=== PATIENT | female | born 1960 | race Caucasian/White ===

== ENCOUNTER 2019-05-16 17:39 | Emergency (ER) | payer BC ==
[2019-05-16] MEDS ORDERED: Acetaminophen/HYDROcodone 325-5 MG Tab PO ONE (18:19)
--- NOTE | 2019-05-16 18:22 | EDM.PDOC ---
ED HPI GENERAL MEDICAL PROBLEM - General Chief Complaint: Lower Extremity Injury/Pain Stated Complaint: FALL/R ANKLE INJURY Time Seen by Provider: 05/16/19 17:51 Source of Information: Reports: Patient History Limitations: Reports: No Limitations - History of Present Illness INITIAL COMMENTS - FREE TEXT/NARRATIVE: The patient presents with right ankle pain. She was walking outside to move a semi and she slipped on the ice. She did not hit her head or hurt her neck. She has pain and swelling to her right ankle. She could not walk on it. She has no other pain. Onset: Sudden Duration: Minutes: Location: Reports: Lower Extremity, Right (ankle) Quality: Reports: Sharp Severity: Moderate Improves with: Reports: Immobilization Worsens with: Reports: Movement Context: Reports: Trauma (Slipped on the ice and fell) Associated Symptoms: Reports: No Other Symptoms Right Ankle Pain Score (Numeric/FACES): 5 - Related Data Allergies Allergy/AdvReac Type Severity Reaction Status Date / Time Sulfa (Sulfonamide Allergy Rash Verified 05/16/19 17:50 Antibiotics) Home Meds: Home Meds Aspirin [Halfprin] 81 mg PO DAILY 05/16/19 [History] Fish Oil/[place]-3 Fatty Acids [Fish Oil 1,000 MG] 2,000 gm PO DAILY 05/16/19 [ History] Hydrocodone/Acetaminophen [Hydrocodon-Acetaminophen 5-325] 1 - 2 each PO Q6HR PRN #20 tablet 05/16/19 [Rx] Levothyroxine [Synthroid] 05/16/19 [History] Omeprazole 05/16/19 [History] Rosuvastatin [Crestor] 05/16/19 [History] Venlafaxine [Effexor XR] 05/16/19 [History] Past Medical History HEENT History: Reports: Impaired Vision Cardiovascular History: Reports: High Cholesterol, Hypertension [employer] History: Reports: Psychiatric History: Reports: Depression Endocrine/Metabolic History: Reports: Hypothyroidism - Infectious Disease History Infectious Disease History: Reports: Chicken Pox - Past Surgical History GI Surgical History: Reports: Cholecystectomy Female Surgical History: Reports: Hysterectomy Musculoskeletal Surgical History: Reports: Carpal Tunnel Social & Family History - Family History Family Medical History: Noncontributory - Tobacco Use Smoking Status *Q: Never Smoker - Caffeine Use Caffeine Use: Reports: Tea - Recreational Drug Use Recreational Drug Use: No Review of Systems - Review of Systems Review Of Systems: See Below Constitutional: Reports: No Symptoms Eyes: Reports: No Symptoms Ears: Reports: No Symptoms Nose: Reports: No Symptoms Mouth/Throat: Reports: No Symptoms Respiratory: Reports: No Symptoms Cardiovascular: Reports: No Symptoms GI/Abdominal: Reports: No Symptoms Genitourinary: Reports: No Symptoms Musculoskeletal: Reports: Other (Right ankle swelling and edema) ED EXAM, GENERAL - Physical Exam Exam: See Below Exam Limited By: No Limitations General Appearance: Alert, No Apparent Distress Ears: Normal External Exam Nose: Normal Inspection Head: Atraumatic, Normocephalic Neck: Normal Inspection Respiratory/Chest: No Respiratory Distress Extremities: Other ( Moderate edema and pain upon palpation to the right ankle. Good pulses distally. She does have some mild numbness in her foot.) Course - Vital Signs Last Recorded V/S: Last Vital Signs Temp 98.1 F 05/16/19 17:46 Pulse 89 05/16/19 17:46 Resp 13 05/16/19 17:46 BP 134/108 H 05/16/19 17:46 Pulse Ox 98 05/16/19 17:46 - Orders/Labs/Meds Orders: Active Orders 24 hr Category Date Time Status Ankle Min 3V Rt [CR] Stat Exams 05/16/19 18:05 Taken Durable Medical Equipment for Discharge [DME for Oth 05/16/19 19:00 Ordered Discharge] [COMM] Stat Meds: Medications Discontinued Medications Generic Name Dose Route Start Last Admin Trade Name Freq PRN Reason Stop Dose Admin Hydrocodone Bitart/Acetaminophen 2 tab 05/16/19 18:19 05/16/19 18:26 [place] 325-5 Mg PO 05/16/19 18:20 2 tab ONETIME ONE Administration - Re-Assessments/Exams Free Text/Narrative Re-Assessment/Exam: 05/16/19 18:24 I ordered hydrocodone 2 pills and an x-ray of her right ankle. 05/16/19 19:01 The patient has a bimalleolar fracture. I will get her in a splint and crutches and I will have her follow up with Dr Cabrera next week. Departure - Departure Time of Disposition: 19:05 Disposition: Home, Self-Care 01 Condition: Good Clinical Impression: Fall Qualifiers: Encounter type: initial encounter Qualified Code(s): W19.XXXA - Unspecified fall, initial encounter Closed bimalleolar fracture Qualifiers: Encounter type: initial encounter Laterality: right Qualified Code(s): S82.841A - Displaced bimalleolar fracture of right lower leg, initial encounter for closed fracture - Discharge Information *PRESCRIPTION DRUG MONITORING PROGRAM REVIEWED*: No *COPY OF PRESCRIPTION DRUG MONITORING REPORT IN PATIENT DOUGLAS: No Prescriptions: Hydrocodone/Acetaminophen [Hydrocodon-Acetaminophen 5-325] 1 - 2 each PO Q6HR PRN #20 tablet PRN Reason: Pain Referrals: Iris Fisher NP [Primary Care Provider] - Bernard Cabrera MD [Physician] - 1 Week Forms: ED Department Discharge Additional Instructions: Ice your ankle for 15 minutes 5 times per day for 3 days. Elevate your ankle as much as you can for 3 days. Wear the splint but do not put any weight on your ankle. Use the crutches. Call Dr Cabrera's office Sunday morning to make a time to see him next week. Pleaser return if you are worse. Sepsis Event Note - Evaluation Sepsis Screening Result: No Definite Risk - Focused Exam Vital Signs: Vital Signs Temp Pulse Resp BP Pulse Ox 05/16/19 17:46 98.1 F 89 13 134/108 H 98 Date Exam was Performed: 05/16/19 Time Exam was Performed: 19:01 - My Orders Last 24 Hours: My Active Orders 05/16/19 18:05 Ankle Min 3V Rt [CR] Stat 05/16/19 19:00 Durable Medical Equipment for Discharge [DME for Discharge] [COMM] Stat - Assessment/Plan Last 24 Hours: My Active Orders 05/16/19 18:05 Ankle Min 3V Rt [CR] Stat 05/16/19 19:00 Durable Medical Equipment for Discharge [DME for Discharge] [COMM] Stat
--- NOTE | 2019-05-16 19:40 | CR ---
Right ankle: 4 views of the right ankle were obtained. Comparison: No prior right ankle study. Mildly displaced lateral malleolar fracture is seen as well as mildly displaced medial malleolar fracture. 2 surgical clips are seen within the medial ankle. Plantar spur is seen. Diffuse soft tissue swelling is noted. Impression: 1. Mildly displaced medial and lateral malleolar fractures. 2. Other findings as noted above. Diagnostic code #3 Study was dictated in [place] Standard Time
== END 2019-05-16 19:30 | disposition home or self-care (01) ==
LOC: JD.ED 17:39
DX: S82.841A Displaced bimalleolar fracture of right lower leg, initial encounter for closed fracture (principal); E78.00 Pure hypercholesterolemia, unspecified; I10 Essential (primary) hypertension; F32.9 Major depressive disorder, single episode, unspecified; E03.9 Hypothyroidism, unspecified; Z88.2 Allergy status to sulfonamides; Z79.899 Other long term (current) drug therapy; Z79.890 Hormone replacement therapy; Z79.82 Long term (current) use of aspirin; W00.0XXA Fall on same level due to ice and snow, initial encounter; Y93.01 Activity, walking, marching and hiking; Y92.89 Other specified places as the place of occurrence of the external cause
CPT/HCPCS: 73610; 99283; A9270

== ENCOUNTER 2020-10-23 18:49 | Emergency (ER) | payer BC ==
[2020-10-23] MEDS ORDERED: HYDROmorphone 1 MG/ML Syringe IVPUSH ONE ×2 (19:32→20:46)
[2020-10-23] MEDS ORDERED: Sodium Chloride 0.9% 500 ML IV ONE (19:32)
[2020-10-23] MEDS ORDERED: Ondansetron 4 MG/2 ML SDV IVPUSH ONE (19:32)
--- NOTE | 2020-10-23 19:38 | EDM.PDOC ---
ED HPI GENERAL MEDICAL PROBLEM - General Chief Complaint: Back Pain or Injury Stated Complaint: BACK SURGERY FEW DAYS AGO EXTREME PAIN Time Seen by Provider: 10/23/20 19:08 Source of Information: Reports: Patient, Family () History Limitations: Reports: No Limitations - History of Present Illness INITIAL COMMENTS - FREE TEXT/NARRATIVE: Mrs. Walker is a pleasant 60-year-old woman who now presents the ED with lower back pain. She states that she underwent an L4-L5 laminectomy and synovial cyst excision 2 days ago, , 10/21/2020, in [place]. She was discharged home with a prescription for tramadol, 1 to 2 tablets po Q 8 hrs, and tizanidine 1 tablet po Q 8 hrs. She has been taking 1 tablet of each every 8 hours. In addition, she was prescribed 20 tablets of Thermal 10/325 on 05/23/2019, when she broke her ankle, which she still has left over. She states that she had been doing well up until late this morning, when her back pain at the surgical site increased, and began radiating down both of her legs. She took 1 tablet of Thermal at 11:40 this morning, then a second tablet at 18:00 this evening, but states that it was inadequate to control her pain. No saddle or lower extremity anesthesia. She has had constipation, but no loss of continence of bladder or bowel. No recent fever. No injury to her back. Here in the ED, the patient's initial BP is found to be modestly elevated at 153/94, otherwise, she is hemodynamically stable, afebrile, saturating 94% on room air. She appears to be uncomfortable, but in no acute distress. Prior to this morning, the patient denies having a recent fever, chills, sore throat, ear pain, nasal or sinus congestion, cough, dyspnea, chest pain, palpitations, nausea, vomiting, constipation, diarrhea, abdominal pain, urinary symptoms, recent weight gain or weight loss, recent bloody bowel movements or black bowel movements, recent joint aches, headaches, or rashes. The patient's PCP is Iris Fisher NP. Her Spinal Surgeon is Dr. Elver Merritt. Her Orthopedic Surgeon is Dr. Elver Meadows. Lower Back Pain Score (Numeric/FACES): 10 - Related Data Allergies Allergy/AdvReac Type Severity Reaction Status Date / Time Sulfa (Sulfonamide Allergy Rash Verified 10/23/20 19:03 Antibiotics) Home Meds: Home Meds Aspirin [Halfprin] 81 mg PO DAILY 05/16/19 [History] Fish Oil/[place]-3 Fatty Acids [Fish Oil 1,000 MG] 2,000 gm PO DAILY 05/16/19 [History] Hydrocodone/Acetaminophen [Hydrocodone-Acetamin 5-325 mg] 1 - 2 each PO Q6HR PRN #20 tablet 05/16/19 [Rx] Levothyroxine [Synthroid] 05/16/19 [History] Omeprazole 05/16/19 [History] Rosuvastatin [Crestor] 05/16/19 [History] Venlafaxine [Effexor XR] 05/16/19 [History] Past Medical History HEENT History: Reports: Impaired Vision Cardiovascular History: Reports: High Cholesterol, Hypertension Musculoskeletal History: Reports: Fracture (right bimalleolar 05/23/2019) Psychiatric History: Reports: Depression Endocrine/Metabolic History: Reports: Hypothyroidism, Obesity/BMI 30+ - Infectious Disease History Infectious Disease History: Reports: Chicken Pox - Past Surgical History GI Surgical History: Reports: Cholecystectomy (2016) Female Surgical History: Reports: Hysterectomy (partial) Endocrine Surgical History: Reports: Parathyroidectomy Neurological Surgical History: Reports: Lumbar Spine (L4-5 laminectomy and synovial cyst excision 10/21/2020) Musculoskeletal Surgical History: Reports: Carpal Tunnel (bilateral), Other (See Below) (Bilateral tarsal tunnel release) Social & Family History - Tobacco Use Tobacco Use Status *Q: Never Tobacco User Second Hand Smoke Exposure: No - Caffeine Use Caffeine Use: Reports: Tea - Alcohol Use Alcohol Use History: Yes Alcohol Use Frequency: Socially - Recreational Drug Use Recreational Drug Use: No - Living Situation & Occupation Living situation: Reports: , with Spouse Occupation: Employed (Self-employed) ED ROS GENERAL - Review of Systems Review Of Systems: Comprehensive ROS is negative, except as noted in HPI. ED EXAM,LOWER BACK PAIN/INJURY - Physical Exam Exam: See Below Exam Limited By: No Limitations General Appearance: Alert, WD/WN, Mild Distress (appears uncomfortable) Eye Exam: Bilateral Eye: EOMI, Normal Inspection Ears: Normal External Exam, Hearing Grossly Normal Nose: Normal Inspection Throat/Mouth: Normal Inspection, Normal Lips, Normal Voice, No Airway Compromise Head: Atraumatic, Normocephalic Neck: Normal Inspection, Full Range of Motion Respiratory/Chest: No Respiratory Distress, Lungs Clear, Normal Breath Sounds, No Accessory Muscle Use Cardiovascular: Normal Peripheral Pulses, Regular Rate, Rhythm, No Gallop, No JVD, No Murmur, No Rub GI/Abdominal: Normal Bowel Sounds, Soft, Non-Tender, No Organomegaly, No Distention, No Abnormal Bruit, No Mass Back Exam: Other (Midline lumbar surgical wound is clean, dry, and intact, with no associated swelling, erythema, or drainage) Extremities: Normal Inspection, Normal Range of Motion, Normal Capillary Refill Neurological: Alert, Normal Dorsiflexion (strong bilaterally), Normal Plantar Flexion (strong bilaterally), No Motor/Sensory Deficits, Oriented x 3 Psychiatric: Normal Affect Skin Exam: Warm, Dry, Intact, Normal Color, No Rash Course - Vital Signs Last Recorded V/S: Last Vital Signs Temp 36.1 C 10/23/20 19:00 Pulse 88 10/23/20 19:00 Resp 16 10/23/20 19:00 BP 153/94 H 10/23/20 19:00 Pulse Ox 94 L 10/23/20 19:00 - Orders/Labs/Meds Meds: Medications Discontinued Medications Generic Name Dose Route Start Last Admin Trade Name Van PRN Reason Stop Dose Admin Hydromorphone HCl 1 mg 10/23/20 19:32 10/23/20 19:52 Hydromorphone 1 Mg/Ml Syringe IVPUSH 10/23/20 19:33 1 mg ONETIME ONE Administration Hydromorphone HCl 1 mg 10/23/20 20:46 10/23/20 21:02 Hydromorphone 1 Mg/Ml Syringe IVPUSH 10/23/20 20:47 1 mg ONETIME ONE Administration Sodium Chloride 500 mls @ 1,000 mls/hr 10/23/20 19:32 10/23/20 19:52 Normal Saline IV 10/23/20 20:01 1,000 mls/hr .BOLUS ONE Administration Ondansetron HCl 4 mg 10/23/20 19:32 10/23/20 19:52 Ondansetron 4 Mg/2 Ml Sdv IVPUSH 10/23/20 19:33 4 mg ONETIME ONE Administration - Re-Assessments/Exams Free Text/Narrative Re-Assessment/Exam: 10/23/20 19:33 As above, the patient underwent an L4-L5 laminectomy and synovial cyst excision 2 days ago, and has been taking 1 tablet of tramadol and 1 tablet of tizanidine every 8 hours since. She had been doing well until this morning, when pain at her surgical site, radiating down both of her legs, increased. She then took 1 tablet of Thermal at 11:40, and a second tablet of Thermal at 18:00, without adequate relief. No recent fever. On examination, the surgical wound appears to be clean, dry, and intact, with no swelling or erythema to suggest an infection. I believe the patient simply got behind on her pain medication. I do not see an indication for work-up, however, I will have an IV placed, give the patient a bolus of IV fluid, along with some IV Dilaudid and IV Zofran, to see if we can get the patient's pain under control. Once under control, the patient can then start taking either a larger dose of tramadol on a regular basis with Thermal for breakthrough, or a regular dose of Thermal. The patient and her are agreeable with this plan. 10/23/20 20:46 I reevaluated the patient. She states that her pain has improved somewhat, but not adequate to go home. I offered to give her another 0.5 or 1.0 mg of Dilaudid; she chose 1.0 mg. So ordered. The patient's had queried about how he was going to get her home. We do not have any beds available at this hospital, and I would not be able to transfer her to [place], since her surgery was in [place]. If the patient is truly unable to go home, I would need to transfer her to [place], therefore I think it is in everyone's best interest if we really try to get her well enough to go home tonight. 10/23/20 21:36 The patient is feeling well enough to be able to sit up at the side of the bed, however, I believe that the patient and her were hoping that we were going to somehow eliminate her pain altogether, which is not possible. They are planning on calling [place] to see what they recommend, and even driving to [place] if that is what is advised. They would prefer to go by private vehicle, not by ambulance. I will therefore discharge the patient. Departure - Departure Time of Disposition: 21:37 Disposition: Home, Self-Care 01 Condition: Good Clinical Impression: Postoperative back pain - Discharge Information *PRESCRIPTION DRUG MONITORING PROGRAM REVIEWED*: Not Applicable *COPY OF PRESCRIPTION DRUG MONITORING REPORT IN PATIENT DOUGLAS: Not Applicable Instructions: Acute Back Pain, Adult Referrals: Iris Fisher NP [Nurse Practitioner] - Elver Merritt MD [Ordering Only Provider] - Elver Meadows MD [Ordering Only Provider] - Forms: ED Department Discharge Additional Instructions: You were seen in the emergency room for increased lower back pain following an L4-L5 laminectomy and synovial cyst excision 2 days ago. Based on your history and physical examination, you were taking an inadequate amount of pain relief, and "got behind". In an attempt to get your pain under control, you were given 2 doses of Dilaudid 1 mg, along with some IV fluid and the antinausea medicine IV Zofran. You have elected to return to [place] for evaluation by private vehicle. You may continue to take tramadol, 2 tablets every 8 hours, plus 1 to 2 tablets of Thermal up to every 6 hours, as needed for breakthrough pain, or, alternatively, simply take 1 to 2 tablets of Thermal up to every 6 hours. You may continue to take the muscle relaxant tizanidine, 1 tablet every 8 hours, as prescribed. If any other problems, please do not hesitate to return to the ER. Sepsis Event Note (ED) - Evaluation Sepsis Screening Result: No Definite Risk - Focused Exam Vital Signs: Vital Signs Temp Pulse Resp BP Pulse Ox 10/23/20 19:00 36.1 C 88 16 153/94 H 94 L
== END 2020-10-23 21:50 | disposition home or self-care (01) ==
LOC: JD.ED 18:49
DX: G89.18 Other acute postprocedural pain (principal); M54.5 Low back pain; E78.00 Pure hypercholesterolemia, unspecified; I10 Essential (primary) hypertension; E03.9 Hypothyroidism, unspecified; E66.9 Obesity, unspecified; Z68.37 Body mass index [BMI] 37.0-37.9, adult; Z88.2 Allergy status to sulfonamides; Z79.82 Long term (current) use of aspirin; Z79.899 Other long term (current) drug therapy
CPT/HCPCS: 96374; 96375; 96376; 99283; J1170; J2405; J7030